=== PATIENT | male | born 1955 | race Caucasian/White ===

== ENCOUNTER → 2019-04-23 | Outpatient (CLI) | payer OTHER ==
[2019-04-23 11:19] LABS: CREATININE 1.1 mg/dL (0.7-1.3)
== END ==
LOC: CAT 10:12
PROVIDERS: Specialist
DX: M47.819 Spondylosis without myelopathy or radiculopathy, site unspecified (principal); I70.0 Atherosclerosis of aorta

== ENCOUNTER → 2019-04-24 | Outpatient (CLI) | payer OTHER ==
[2019-04-24 17:12] LABS: CREATININE 1.2 mg/dL (0.7-1.3)
== END ==
LOC: CAT 13:56
PROVIDERS: Specialist
DX: R93.49 Abnormal radiologic findings on diagnostic imaging of other urinary organs (principal)

== ENCOUNTER → 2019-10-15 | Outpatient (CLI) | payer OTHER | LOC: SJCVCIMAG 14:26 | DX: Z01.810 Encounter for preprocedural cardiovascular examination (principal); I08.2 Rheumatic disorders of both aortic and tricuspid valves; R94.31 Abnormal electrocardiogram [ECG] [EKG]; E78.00 Pure hypercholesterolemia, unspecified; I11.9 Hypertensive heart disease without heart failure; E78.5 Hyperlipidemia, unspecified; E66.9 Obesity, unspecified; Z79.899 Other long term (current) drug therapy ==

== ENCOUNTER → 2020-04-04 | Outpatient (CLI) | payer OTHER ==
[2020-04-04 10:32] LABS: CREATININE 1.5 mg/dL (0.7-1.3)
== END ==
LOC: CAT 09:26
PROVIDERS: ATTEND Family Medicine
DX: N13.2 Hydronephrosis with renal and ureteral calculous obstruction (principal); N28.89 Other specified disorders of kidney and ureter; N40.0 Benign prostatic hyperplasia without lower urinary tract symptoms; K57.30 Diverticulosis of large intestine without perforation or abscess without bleeding; I70.8 Atherosclerosis of other arteries; K42.9 Umbilical hernia without obstruction or gangrene; M47.815 Spondylosis without myelopathy or radiculopathy, thoracolumbar region; Z98.890 Other specified postprocedural states; Z90.49 Acquired absence of other specified parts of digestive tract; Z88.0 Allergy status to penicillin

== ENCOUNTER → 2020-12-16 | Outpatient (CLI) | payer OTHER ==
[~2020-12-16] MED LIST: ATORVASTATIN CA20 MG PO; OLMESARTAN-HCT1 EAC1 PO
[2020-12-16 08:50] LABS: HEMOGLOBIN 13.6 gm/dL (14.0-18.0); MCH 31.8 pg (26.0-34.0); MCV 93.5 fL (80.0-100.0); RBC 4.28 mil/uL (4.50-6.00); RDW 13.1 % (10.5-14.5); URINE BILIRUBIN NEGATIVE (Negative); URINE BLOOD NEGATIVE (Negative); URINE CLARITY CLEAR; URINE COLOR YELLOW; URINE GLUCOSE-RANDOM* NEGATIVE (Negative); URINE KETONES NEGATIVE (Negative); URINE LEUKOCYTES-REFLEX NEGATIVE (Negative); URINE NITRITE-REFLEX NEGATIVE (Negative); URINE PROTEIN (DIPSTICK) NEGATIVE (Negative); URINE SPECIFIC GRAVITY >= 1.030 (1.005-1.035); URINE UROBILINOGEN 0.2 E.U./dl (0.2-1.0); WBC 4.4 thou/uL (4.0-11.0)
[2020-12-16 09:01] LABS: CALCIUM 8.5 mg/dL (8.5-10.1); CREATININE 1.2 mg/dL (0.7-1.3); POTASSIUM 3.8 mmol/L (3.5-5.1)
--- NOTE | 2020-12-16 09:12 | EKG ---
[address] [place] [address] ELECTROCARDIOGRAM REPORT Name: MARIANOCARLININDRA GARY Room #: REG [facility]#: [id number] Admission: 12/16/20 Attend Phys: Tesfaye Gil MD Discharge: Date of : 51 Report #: [id number] [facility] Test Date: 2020-12-16 Test Time: 08:44:24 Pat Name: CARLIN QUINTANA Department: Room: Gender: M [employer]: MARV CARSON : 1955 Requested By: Tesfaye Gil Order Number: [id number] : Jacob Rowley Measurements Intervals [place] Rate: 59 P: -15 AR: 228 QRS: -7 QRSD: 103 T: 106 QT: 426 QTc: 422 Interpretive Statements Sinus rhythm Prolonged AR interval Nonspecific T abnormalities, lateral leads No previous ECG available for comparison Electronically Signed On 12-16-2020 9:12:03 CDT by Jacob Rowley [email or web address] <ELECTRONICALLY SIGNED> By: Jacob Rowley MD, [facility] 12/16/2012 0844 0844 Jacob Rowley MD, FACDelvis /EPI
[2020-12-16 09:26] LABS: PROTIME 10.9 Seconds (10.5-12.1)
== END ==
LOC: PAC 08:05
PROVIDERS: ATTEND Orthopaedic Surgery
DX: Z01.812 Encounter for preprocedural laboratory examination (principal); Z01.810 Encounter for preprocedural cardiovascular examination; M17.0 Bilateral primary osteoarthritis of knee; R94.31 Abnormal electrocardiogram [ECG] [EKG]

== ENCOUNTER 2021-01-05 10:50 | Observation (INO) | payer OTHER ==
[~2021-01-05] VITALS: Ht 180.3 cm; Wt 124.7 kg
--- NOTE | ~2021-01-05 | O ---
[facility] [place] [address] OPERATIVE REPORT Name: CARLIN QUINTANA Room #: 433-I [facility] Jay Mendosa#: [id number] Admission: 01/05/21 Attend Phys: Tesfaye Gil MD Discharge: 01/06/21 Date of : 51 Report #: [id number] THIS REPORT FOR: cc: Torsten Nugent James A. DO Abraham, Scott M. MD ~ DATE OF SERVICE: 01/05/2021 PREOPERATIVE DIAGNOSIS: Right knee osteoarthritis. POSTOPERATIVE DIAGNOSIS: Right knee osteoarthritis. PROCEDURE: Right total knee arthroplasty using Navio robotic assistance. SURGEON: Tesfaye Gil M.D. DIAL MARKER: Francy Alba PA-C. INDICATION FOR DIAL MARKER: Throughout the case, extensive retraction, manipulation of the knee was required. This is supported to me by my visitor use assistant. ANESTHESIA: LMA with adductor canal block. IMPLANTS: A [employer] size 7 cobalt chrome Journey II BCS femur, size 6 tibia, size 9 constrained polyethylene and size 35 patella. TOURNIQUET TIME: 56 minutes. ESTIMATED BLOOD LOSS: 25 mL COMPLICATIONS: None. SPECIMENS: None. CONDITION UPON LEAVING THE OPERATING ROOM: ____. DESCRIPTION OF PROCEDURE: ____ in detail with the patient including but not limited to risk of anesthesia, risk of damage to nerves, arteries, blood vessels ____, DVT, PE, infection, bleeding and need for reoperation. Informed consent was obtained from the patient. The right knee was appropriately marked in the preoperative holding area. IV clindamycin was given for preoperative antibiotics. He was brought to the operating room and placed in the supine position on the operating table. LMA anesthesia was induced without complication. Tourniquet was placed on the right thigh. Right lower extremity was prepped and draped in normal sterile fashion. Timeout was performed ____. Standard midline approach to knee was made with 10 blade through the skin. [address] [address] OPERATIVE REPORT Name: CARLIN QUINTANA Room #: 433-I [facility] Jay Mendosa#: [id number] Admission: 01/05/21 Attend Phys: Tesfaye Gil MD Discharge: 01/06/21 Date of : 51 Report #: [id number] Dissection was taken down sharply to the fascia. Deep flaps were developed medially and laterally. Fresh 10 blade was used to make a medial parapatellar arthrotomy and the knee was inspected. There was severe medial compartment osteoarthritis with moderate lateral osteoarthritis. ACL and PCL were removed sharply. Reference pins were placed ____. The knee was then digitally mapped using Lumate robotic system. Intraoperative plan was made. We sized the size 7 femur, size 6 tibia and a 10 spacer. After acceptance of the intraoperative plan, the distal femoral cut was made with Navio bur. Distal femoral cutting block was pinned in place and chamfer cuts were made. Attention was turned to the tibia. Remainder of the menisci removed with Bovie cautery. Tibial resection guide was pinned in place using Navio for placement and tibial resection was made. Flexion and extension gaps were checked and found to be tight medially in extension. Limited medial release was performed by taking down the ____ as well as ____ size 7 femoral trial was placed ____, size 9 polyethylene demonstrated ____ laterally in mid flexion. It was felt we could make up for this with a constrained implant. A 9 mm of bone was resected from the posterior surface of the patella and a size ____ patellar trial button was placed. Knee was taken through range of motion, found to be stable, and found to have good patellar tracking. Trial components were removed. Bone ends thoroughly irrigated with normal saline. A final size 6 tibia, size 7 Journey II BCS cobalt chrome femur and a size 35 patella were cemented in place using standard cementation techniques. While the cement cured, a periarticular injection consisting of morphine, ropivacaine, epinephrine, Toradol was placed around the knee joint capsule. After the cement cured, tourniquet was deflated. Hemostasis was obtained with Bovie cautery. Final size 9 constrained polyethylene was placed. A gram of vancomycin was placed deep in the joint. Fascia was closed with 0 Vicryl. Skin was closed with 2-0 Vicryl. Skin margaret and a NADIYA dressing was applied. The patient tolerated this procedure well and went to recovery room under care of anesthesia postoperatively. By: [id number] Tesfaye Gil MD /nt
[2021-01-05 13:09] VITALS: BP 151/69
[2021-01-05 17:10] VITALS: BP 131/65
--- NOTE | 2021-01-05 18:29 | NUR ---
ASSUMED PT CARE AT 1700 FROM PACU. PT HAS R TOTAL KNEE REPLACEMENT TODAY. PT IS ALERT & ORIENTED X4. PT HAS IV SITE ON R WRIST 20 GAUGE RUNNING D5 1/2 NS @ 100ML/HR. PT USES URINAL AND VOIDED AFTER SURGERY. PT HAS SLEEP APNEA AND BOUGHT HIS CPAP MACHINE FROM HOME. PT HAS BILATERAL KNEE HIGH NATALIE HOSES, SCD, POLAR CARE AND NADIYA DRESSING ON R KNEE. PT AT THE BEDSIDE. FINISHED ADMISSION. PT ON THE BED, BED ON THE LOWEST POSITION, SIDE RAILS UP, CALL LIGHT WITHIN REACH. WILL CONTINUE TO MONITOR PT. FOLLOW POC.
[2021-01-05 19:25] VITALS: BP 133/62
--- NOTE | 2021-01-06 03:13 | NUR ---
ASSUMED SHIFT AT 2300 PT RESTING IN BED. DENIES NEED FOR PAIN MEDS. IV INTACT FLUIDS INFUSING. NADIYA DRESSING, SCD'S AND POLAR PACK IN PLACE. FALL PREC MAINTAINED. PT DENIES N/V. STILL FEELS NUMBNESS IN RT KNEE. NO FURTHER SIGNS OF DISCOMFORT WILL CONT TO MONITOR
[2021-01-06 08:12] VITALS: BP 127/66
--- NOTE | 2021-01-06 09:25 | NUR ---
ASSESSMENT: CM REVIEWED CHART AND SPOKE WITH PATIENT AT THE BEDSIDE. PT IS ALERT AND ORIENTED X4. PT IS S/P RIGHT TKA. PT REPORTS LIVING IN A HOUSE WITH HIS WILLEM. PT REPORTS HAVING ONE STEP TO ENTER WITH NO HANDRAIL. PT REPORTS ALL HIS NEEDS ARE ON THE MAIN LEVEL BUT THERE ARE 13 STEPS WITH HANDRAILS TO THE BASEMENT. PT REPORTS HAVING MULTIPLE CANES AT HOME HE COLLECTS THEM AND ALSO REPORTS HAVING A WALKER. PT HAS OUTPATIENT THERAPY ARRANGED TO BEGIN HERE AT [facility] [place] STARTING TOMORROW 01/07. CM DISCUSSED ROLE. PT DOES NOT ANTICIPATE HAVING ANY NEEDS FROM CM. CM WILL CONTINUE TO FOLLOW TO ASSIST NEEDED, PT IS TO START WORKING WITH THERAPY.
--- NOTE | 2021-01-06 11:19 | NUR ---
Assessed pt at 7:00 am. Pt states he has experienced no pain from surgery. Ollie dressing is C/D/I. Polar pack and SCD'S in place. Pt is AxOx4. Uses CPAP at night on RA in day. Walked with PT in hallway. Pt is discharging today.
[2021-01-06 12:08] VITALS: BP 127/66
== END 2021-01-06 12:30 | disposition home or self-care (01) ==
LOC: OR 10:50 → 4S 16:43 → OR 16:44 → 4S 16:44 → OR 01-22 09:31
PROVIDERS: ADMIT Orthopaedic Surgery; ATTEND Orthopaedic Surgery
DX: M17.11 Unilateral primary osteoarthritis, right knee (principal); Z79.899 Other long term (current) drug therapy
CPT/HCPCS: 50010; 50101; 50415; 50954; 51130; 51225; 51320; 51412; 52001; 52282; 53000; 53078; 56527; 56528; 57095; 57103; 57110; 57127; 57180; 58239; 62110; 62900; 64043; 65060; 70005

== ENCOUNTER 2021-08-23 02:34 | Emergency (ER) | payer OTHER ==
[~2021-08-23] VITALS: Ht 180.3 cm; Wt 122.5 kg
[2021-08-23] MEDS ORDERED: NORCO7.5 PO (03:56)
[2021-08-23] MEDS ORDERED: MEDROLDOSEPACK PO (03:56)
[2021-08-23 04:22] VITALS: BP 157/78
== END 2021-08-23 04:23 | disposition home or self-care (01) ==
LOC: ER 02:34
DX: M79.604 Pain in right leg (principal); M54.16 Radiculopathy, lumbar region; I10 Essential (primary) hypertension; E78.5 Hyperlipidemia, unspecified; Z87.442 Personal history of urinary calculi; Z90.49 Acquired absence of other specified parts of digestive tract; Z98.890 Other specified postprocedural states; Z79.899 Other long term (current) drug therapy; Z88.0 Allergy status to penicillin; Z91.040 Latex allergy status; Z88.8 Allergy status to other drugs, medicaments and biological substances